=== PATIENT | male | born 1950 | race Caucasian/White ===

== ENCOUNTER → 2018-05-18 | Outpatient (CLI) | payer OTHER | LOC: M CARPUL 07:43 | DX: G47.31 Primary central sleep apnea (principal) | CPT/HCPCS: 93306 ==

== ENCOUNTER → 2020-02-08 | Outpatient (REF) | payer OTHER ==
[~2020-02-08] MED LIST: LASI40TA OR; LOPR50TA OR; TRAM50TA2 OR
[2020-03-05 14:05] LABS: APPEARANCE, URINE HAZY (CLEAR); BACTERIA, URINE AUTO 2+ (NEGATIVE); BILIRUBIN, URINE AUTO NEGATIVE (NEGATIVE); BLOOD, URINE BLOOD 3+ (NEGATIVE); COLOR, URINE YELLOW (YELLOW); GLUCOSE, URINE (UA) AUTO NEGATIVE (NEGATIVE); KETONE, URINE AUTO NEGATIVE (NEGATIVE); LEUKOCYTE ESTERASE, URINE AUTO 2+ (NEGATIVE); MUCUS, URINE SMALL (NEGATIVE); NITRITE, URINE AUTO NEGATIVE (NEGATIVE); PROTEIN, URINE AUTO NEGATIVE (NEGATIVE); RBC, URINE AUTO 2 /HPF (0-3); SPECIFIC GRAVITY URINE AUTO 1.006 (1.002-1.035); SQUAMOUS EPITHELIAL CELL UR AU 0 /HPF (0-6); UROBILINOGEN, URINE AUTO 0.2 mg/dL (0.0-2.0); WBC, URINE AUTO 23 /HPF (0-3)
== END ==
LOC: M LAB REF 07:26
PROVIDERS: ATTEND Physician Assistant Medical
DX: N39.0 Urinary tract infection, site not specified (principal)

== ENCOUNTER → 2022-01-31 | Outpatient (CLI) | payer MEDICARE, OTHER ==
[~2022-01-31] MED LIST changes: +AMMO12LO TOP; +CREO24CA PO; +CRES40TA PO; +DEXA5LQ; +ELIQ5TAB PO; +FERR325T3 PO; +GABA-1171 PO; +NOXI1TAB PO; +OXYC-403 PO; +PANT40TA29 PO; +POTA-151 PO; +PROC25SU24 PR; +PYRI1TAB5 PO; +SENN1TAB41 PO
== END ==
LOC: M RAD 08:59
PROVIDERS: ATTEND Specialist
DX: C25.9 Malignant neoplasm of pancreas, unspecified (principal)
CPT/HCPCS: 78306; A9503

== ENCOUNTER → 2022-02-03 | Outpatient (CLI) | payer OTHER ==
[~2022-02-03] MED LIST changes: +CYAN2500 SL; +GABA-283 PO
== END ==
LOC: M RAD 12:54
PROVIDERS: ATTEND Internal Medicine
DX: M25.561 Pain in right knee (principal); M25.562 Pain in left knee; M25.571 Pain in right ankle and joints of right foot; M25.572 Pain in left ankle and joints of left foot

== ENCOUNTER → 2022-02-08 | Outpatient (CLI) | payer OTHER ==
[~2022-02-08] MED LIST changes: +PROHANCE 279.3MG/ML 15ML VIAL As Ordered ONE; +PROHANCE 279.3MG/ML 5ML VIAL As Ordered ONE
== END ==
LOC: M RAD 08:36
PROVIDERS: ATTEND Specialist
DX: C78.7 Secondary malignant neoplasm of liver and intrahepatic bile duct (principal); C25.9 Malignant neoplasm of pancreas, unspecified
CPT/HCPCS: 74183; A9576

== ENCOUNTER 2022-02-21 09:32 | Emergency (ER) | payer OTHER ==
[~2022-02-21] VITALS: Ht 175.3 cm; Wt 131.5 kg
[~2022-02-21 09:32] MED LIST changes: +META28.32 PO; +MILK400S12 PO; +MIRA3350 PO; -PROHANCE 279.3MG/ML 15ML VIAL As Ordered ONE; -PROHANCE 279.3MG/ML 5ML VIAL As Ordered ONE
[2022-02-21] MEDS ORDERED: OXYC10TA12 PO (10:11)
[2022-02-21] MEDS ORDERED: NS 500 ML IV ONE (10:40)
[2022-02-21] MEDS ORDERED: ISOVUE-370 76% 100ML VIAL As Ordered ONE (11:35)
[2022-02-21 11:36] LABS: HEMATOCRIT 25.9 % (42.0-52.0); HEMOGLOBIN 7.4 g/dl (13.5-17.5); MEAN CORPUSCULAR HEMOGLOBIN 30.1 pg (27.0-33.0); MEAN CORPUSCULAR HGB CONC 28.6 g/dl (32.0-36.5); MEAN CORPUSCULAR VOLUME 105.3 fl (80.0-96.0); RED BLOOD COUNT 2.46 10^6/uL (4.30-6.10)
[2022-02-21 12:09] LABS: INR 1.04
[2022-02-21 12:10] LABS: PARTIAL THROMBOPLASTIN TIME 27.8 SECONDS (25.9-37.0)
[2022-02-21 12:13] LABS: ALBUMIN 2.9 GM/DL (3.2-5.2); BILIRUBIN,DIRECT 0.2 MG/DL (0.0-0.2); BILIRUBIN,TOTAL 0.4 MG/DL (0.2-1.0); MAGNESIUM LEVEL 2.2 MG/DL (1.8-2.4); TOTAL PROTEIN 6.2 GM/DL (6.4-8.2)
[2022-02-21 12:20] LABS: CK-MB VALUE MASS < 1.0 NG/ML (<3.6); CPK CREATINE PHOSPHOKINASE 27 U/L (39-308)
[2022-02-21 12:22] LABS: LYMPHOCYTES 4 % (16-44); NEUTROPHILS 96 % (28-66); PLATELET ESTIMATE NORMAL (NORMAL)
[2022-02-21 12:23] LABS: ANISOCYTOSIS 1+; HYPOCHROMASIA 1+
[2022-02-21] MEDS ORDERED: ATIV1TAB10 PO (14:16)
[2022-02-21 14:52] VITALS: BP 132/77
[2022-02-24] MEDS ORDERED: OXYC-404 PO (14:15)
== END 2022-02-21 14:55 | disposition home or self-care (01) ==
LOC: M ED 09:32
DX: D72.829 Elevated white blood cell count, unspecified (principal); R10.9 Unspecified abdominal pain; C25.9 Malignant neoplasm of pancreas, unspecified; I49.1 Atrial premature depolarization; I44.4 Left anterior fascicular block; Z86.79 Personal history of other diseases of the circulatory system; Z88.1 Allergy status to other antibiotic agents; Z88.8 Allergy status to other drugs, medicaments and biological substances; Z92.21 Personal history of antineoplastic chemotherapy; Z79.01 Long term (current) use of anticoagulants; Z79.52 Long term (current) use of systemic steroids; Z79.899 Other long term (current) drug therapy
CPT/HCPCS: 71045; 71260; 74177; 80047; 80076; 81001; 82150; 82550; 82553; 83605; 83690; 83735; 84484; 85025; 85610; 85730; 87040; 93005; 93041; 96360; 96361; 99284; Q9967

== ENCOUNTER → 2022-03-01 | Outpatient (CLI) | payer OTHER ==
[~2022-03-01] MED LIST changes: +ACET1TAB55 PO; +ATIV1TAB10 PO; +CEFD300CAP PO; +COLC0.6T47 PO; +CREO12CA PO; +CYAN100050 PO; -DEXA5LQ; +DEXA5LQ PO; +DIGO0.253 PO; +FAMO20TA PO; +LIDOCAINE 1% MDV 20ML VIAL As Ordered ONE; +METO1TAB7 PO; +OXYC-404 PO; +OXYC10TA12 PO; +SYNT100T PO; +TORS10TA3 PO; +VITA100093 PO; +med rec comment
[2022-03-01 11:15] VITALS: BP 119/59
== END ==
LOC: M IRPRO 08:11
PROVIDERS: ATTEND Specialist
DX: C22.9 Malignant neoplasm of liver, not specified as primary or secondary (principal)

== ENCOUNTER 2022-03-03 12:26 | Inpatient (IN) | payer OTHER ==
[~2022-03-03] VITALS: Ht 175.3 cm; Wt 131.4 kg
[~2022-03-03 12:26] MED LIST changes: -ACET1TAB55 PO; -CEFD300CAP PO; -COLC0.6T47 PO; -CREO12CA PO; -CYAN100050 PO; -DIGO0.253 PO; -FAMO20TA PO; -LIDOCAINE 1% MDV 20ML VIAL As Ordered ONE; -METO1TAB7 PO; -SYNT100T PO; -TORS10TA3 PO; -VITA100093 PO; -med rec comment
[2022-03-03] MEDS ORDERED: ACET1TAB55 PO (13:23)
[2022-03-03] MEDS ORDERED: NS 500 ML IV ONE (13:25)
[2022-03-03] MEDS ORDERED: ISOVUE-370 76% 100ML VIAL As Ordered ONE (13:50)
[2022-03-03] MEDS: SODIUM CHLORIDE 0.9% INJ 10 ML SYR IV PRN (14:24)
[2022-03-03 14:44] LABS: ALBUMIN 2.6 GM/DL (3.2-5.2); BILIRUBIN,DIRECT 0.4 MG/DL (0.0-0.2); BILIRUBIN,TOTAL 0.8 MG/DL (0.2-1.0); TOTAL PROTEIN 6.3 GM/DL (6.4-8.2)
[2022-03-03 15:04] LABS: CK-MB VALUE MASS < 1.0 NG/ML (<3.6); CPK CREATINE PHOSPHOKINASE 45 U/L (39-308); MB/CK RELATIVE INDEX 2.22 (< OR =4)
[2022-03-03] MEDS ORDERED: PIPERACILLIN/TAZOBACTAM SOD 4.5 GM in D5W MINI-BAG PLUS 50 ML IV ONE (15:15)
[2022-03-03 15:21] LABS: AMORPHOUS SEDIMENT, URINE SMALL AMOUNT (NEGATIVE); BACTERIA, URINE NONE SEEN; HYALINE CAST, URINE NONE SEEN /lpf (0-1); MUCUS, URINE LARGE AMOUNT (NEGATIVE); RBC, URINE 0-1 /hpf (0-3); SQUAMOUS EPITHELIAL CELL URINE SMALL AMOUNT /hpf (SMALL AMT)
[2022-03-03] MEDS ORDERED: VITA100093 PO (17:38)
[2022-03-03] MEDS ORDERED: GABA-1171 PO (17:38)
[2022-03-03] MEDS ORDERED: DIGO0.253 PO (17:38)
[2022-03-03] MEDS ORDERED: METO1TAB7 PO (17:38)
[2022-03-03] MEDS ORDERED: CYAN100050 PO (17:38)
[2022-03-03] MEDS ORDERED: CREO12CA PO (17:38)
[2022-03-03] MEDS ORDERED: SYNT100T PO (17:38)
[2022-03-03] MEDS ORDERED: HOME MED LIST COMPLETE! XX SCH (17:40)
[2022-03-03 18:00] VITALS: BP 140/78
[2022-03-03] MEDS: CREON-12 CAPSULE PO SCH (18:00)
[2022-03-03] MEDS: CREON-24 CAPSULE PO SCH (18:00)
[2022-03-03] MEDS: oxyCODONE 5MG TAB PO PRN (18:44)
[2022-03-03] MEDS ORDERED: VANCOMYCIN HCL 1,000 MG, VIAL MATE ADAPTER 1 EACH in NS 250 ML IV ONE (19:00)
[2022-03-03 19:10] VITALS: O2SAT 93
[2022-03-03] MEDS ORDERED: GABAPENTIN 100 MG CAP PO SCH (21:00)
[2022-03-03] MEDS: SENOKOT S TAB PO SCH (21:22)
[2022-03-03] MEDS: GABAPENTIN 300 MG CAP PO SCH (21:22)
[2022-03-03] MEDS: APIXABAN 5 MG TAB (ELIQUIS) PO SCH (21:22)
[2022-03-03] MEDS: oxyCODONE 20 MG CR TAB PO SCH (21:24)
[2022-03-03] MEDS: VANCOMYCIN HCL 1,000 MG, VIAL MATE ADAPTER 1 EACH in NS 250 ML IV SCH (21:46)
[2022-03-03 22:00] VITALS: BP 110/64
[2022-03-03] MEDS: NYSTATIN 100,000 UNITS/GM TOPICAL PWD 15 GM TOP SCH (22:52)
[2022-03-03] MEDS: PIPERACILLIN/TAZOBACTAM SOD 4.5 GM in D5W MINI-BAG PLUS 50 ML IV SCH (23:11)
[2022-03-04] VITALS (13 sets, daily range): BP systolic 96–118; BP diastolic 56–68; O2SAT 91
[2022-03-04] MEDS: SODIUM CHLORIDE 0.9% INJ 10 ML SYR IV PRN (00:23)
[2022-03-04] MEDS: oxyCODONE 5MG TAB PO PRN ×2 (01:26→17:06)
[2022-03-04] MEDS: PIPERACILLIN/TAZOBACTAM SOD 4.5 GM in D5W MINI-BAG PLUS 50 ML IV SCH ×4 (05:52→22:24)
[2022-03-04] MEDS: LEVOTHYROXINE 100MCG TABLET (0.1MG) PO SCH (05:52)
[2022-03-04] MEDS ORDERED: FUROSEMIDE 40MG/4ML VIAL (J1940) IV ONE ×2 (08:10→13:00)
[2022-03-04] MEDS: APIXABAN 5 MG TAB (ELIQUIS) PO SCH ×2 (08:27→20:48)
[2022-03-04] MEDS: ROSUVASTATIN 10 MG TAB (CRESTOR) PO SCH (08:27)
[2022-03-04] MEDS: METAMUCIL (PSYLLIUM) PACKET PO SCH (08:27)
[2022-03-04] MEDS: MIRALAX *UNIT DOSE* 17GM PACKET PO SCH (08:27)
[2022-03-04] MEDS: CREON-24 CAPSULE PO SCH ×3 (08:27→17:37)
[2022-03-04] MEDS: CREON-12 CAPSULE PO SCH ×3 (08:27→17:36)
[2022-03-04] MEDS: GABAPENTIN 300 MG CAP PO SCH ×3 (08:27→20:48)
[2022-03-04] MEDS: VANCOMYCIN HCL 1,000 MG, VIAL MATE ADAPTER 1 EACH in NS 250 ML IV SCH ×2 (08:27→20:58)
[2022-03-04] MEDS: NYSTATIN 100,000 UNITS/GM TOPICAL PWD 15 GM TOP SCH ×2 (08:30→20:49)
[2022-03-04] MEDS: DIGOXIN 0.25 MG TAB PO SCH (08:31)
[2022-03-04] MEDS: METOPROLOL SUCC (TopROL XL) 50MG **XL** TAB PO SCH (08:31)
[2022-03-04] MEDS: oxyCODONE 20 MG CR TAB PO SCH ×2 (08:35→20:49)
[2022-03-04 09:25] LABS: BASO # 0.1 10^3/uL (0.0-0.2); BASO % 0.2 % (0.0-1.0); EOS % 0.1 % (0.0-3.0); HEMATOCRIT 25.1 % (42.0-52.0); HEMOGLOBIN 7.4 g/dl (13.5-17.5); LYMPH % 4.9 % (24.0-44.0); MEAN CORPUSCULAR HEMOGLOBIN 29.1 pg (27.0-33.0); MEAN CORPUSCULAR HGB CONC 29.5 g/dl (32.0-36.5); MEAN CORPUSCULAR VOLUME 98.8 fl (80.0-96.0); MONO % 20.3 % (2.0-8.0); NEUTROPHILS # 14.7 10^3/uL (1.5-8.5); PLATELET COUNT, AUTOMATED 334 10^3/uL (150-450); RED BLOOD COUNT 2.54 10^6/uL (4.30-6.10); WHITE BLOOD COUNT 20.2 10^3/uL (4.0-10.0)
[2022-03-04 10:01] LABS: ALBUMIN 2.8 GM/DL (3.2-5.2); ALT/SGPT 31 U/L (12-78); BILIRUBIN,TOTAL 0.8 MG/DL (0.2-1.0); BLOOD UREA NITROGEN 14 MG/DL (7-18); CALCIUM LEVEL 8.8 MG/DL (8.8-10.2); CARBON DIOXIDE LEVEL 24 MEQ/L (21-32); CHLORIDE LEVEL 103 MEQ/L (98-107); CREATININE FOR GFR 1.16 MG/DL (0.70-1.30); GLOMERULAR FILTRATION RATE > 60.0 (>42); GLUCOSE, FASTING 118 MG/DL (70-100); SODIUM LEVEL 134 MEQ/L (136-145); TOTAL PROTEIN 6.4 GM/DL (6.4-8.2)
[2022-03-04 10:35] LABS: MONO # 4.1 10^3/uL (0.0-0.8)
[2022-03-04] MEDS: SENOKOT S TAB PO SCH (20:49)
[2022-03-05 02:00] VITALS: BP 102/61
[2022-03-05] MEDS: PIPERACILLIN/TAZOBACTAM SOD 4.5 GM in D5W MINI-BAG PLUS 50 ML IV SCH ×2 (03:03→10:55)
[2022-03-05] MEDS: SODIUM CHLORIDE 0.9% INJ 10 ML SYR IV PRN ×2 (04:23→12:35)
[2022-03-05 05:04] VITALS: BP 107/71
[2022-03-05] MEDS: LEVOTHYROXINE 100MCG TABLET (0.1MG) PO SCH (05:10)
[2022-03-05 06:56] LABS: BASO % 0.2 % (0.0-1.0); EOS # 0.1 10^3/uL (0.0-0.5); EOS % 0.4 % (0.0-3.0); HEMATOCRIT 28.8 % (42.0-52.0); HEMOGLOBIN 8.8 g/dl (13.5-17.5); LYMPH # 0.8 10^3/uL (1.5-5.0); LYMPH % 4.3 % (24.0-44.0); MEAN CORPUSCULAR HEMOGLOBIN 29.6 pg (27.0-33.0); MEAN CORPUSCULAR HGB CONC 30.6 g/dl (32.0-36.5); MONO % 19.4 % (2.0-8.0); NEUTROPHILS # 13.4 10^3/uL (1.5-8.5); NEUTROPHILS % 74.6 % (36.0-66.0); PLATELET COUNT, AUTOMATED 287 10^3/uL (150-450); RED BLOOD COUNT 2.97 10^6/uL (4.30-6.10)
[2022-03-05 07:18] LABS: MONO # 3.5 10^3/uL (0.0-0.8)
[2022-03-05 07:30] LABS: BLOOD UREA NITROGEN 15 MG/DL (7-18); CALCIUM LEVEL 8.4 MG/DL (8.8-10.2); CARBON DIOXIDE LEVEL 28 MEQ/L (21-32); CHLORIDE LEVEL 100 MEQ/L (98-107); CREATININE FOR GFR 1.25 MG/DL (0.70-1.30); GLOMERULAR FILTRATION RATE > 60.0 (>42); GLUCOSE, FASTING 123 MG/DL (70-100); POTASSIUM SERUM 3.7 MEQ/L (3.5-5.1); SODIUM LEVEL 136 MEQ/L (136-145)
[2022-03-05] MEDS ORDERED: FUROSEMIDE 40MG/4ML VIAL (J1940) IV ONE (07:40)
[2022-03-05] MEDS: CREON-24 CAPSULE PO SCH (08:39)
[2022-03-05] MEDS: MIRALAX *UNIT DOSE* 17GM PACKET PO SCH (08:39)
[2022-03-05] MEDS: APIXABAN 5 MG TAB (ELIQUIS) PO SCH (08:39)
[2022-03-05] MEDS: CREON-12 CAPSULE PO SCH (08:39)
[2022-03-05] MEDS: DIGOXIN 0.25 MG TAB PO SCH (08:39)
[2022-03-05] MEDS: METAMUCIL (PSYLLIUM) PACKET PO SCH (08:39)
[2022-03-05] MEDS: ROSUVASTATIN 10 MG TAB (CRESTOR) PO SCH (08:40)
[2022-03-05] MEDS: VANCOMYCIN HCL 1,000 MG, VIAL MATE ADAPTER 1 EACH in NS 250 ML IV SCH ×2 (08:40→09:22)
[2022-03-05] MEDS: GABAPENTIN 300 MG CAP PO SCH (08:40)
[2022-03-05] MEDS: NYSTATIN 100,000 UNITS/GM TOPICAL PWD 15 GM TOP SCH (08:41)
[2022-03-05 08:59] VITALS: BP 103/65
[2022-03-05] MEDS: METOPROLOL SUCC (TopROL XL) 50MG **XL** TAB PO SCH (08:59)
[2022-03-05] MEDS: oxyCODONE 20 MG CR TAB PO SCH (09:07)
[2022-03-05] MEDS ORDERED: CEFD300CAP PO (10:17)
[2022-03-05] MEDS ORDERED: TORS10TA3 PO (10:17)
[2022-03-05 10:30] VITALS: O2SAT 92
== END 2022-03-05 13:29 | disposition home or self-care (01) | DRG 815 ==
LOC: M ED 12:26 → M ED INP 15:52 → ENRESERV 16:17 → M MSPAV 17:55
PROVIDERS: ADMIT Internal Medicine Nephrology; ATTEND Internal Medicine Nephrology
PROC: 30233N1 Transfusion of Nonautologous Red Blood Cells into Peripheral Vein, Percutaneous Approach (ICD-10-PCS; principal; 2022-03-04)
DX: D72.829 Elevated white blood cell count, unspecified (principal); C78.7 Secondary malignant neoplasm of liver and intrahepatic bile duct; C25.9 Malignant neoplasm of pancreas, unspecified; Z68.41 Body mass index [BMI] 40.0-44.9, adult; E78.5 Hyperlipidemia, unspecified; I48.91 Unspecified atrial fibrillation; J45.909 Unspecified asthma, uncomplicated; E53.8 Deficiency of other specified B group vitamins; I10 Essential (primary) hypertension; K21.9 Gastro-esophageal reflux disease without esophagitis; E03.9 Hypothyroidism, unspecified; E66.01 Morbid (severe) obesity due to excess calories; G47.33 Obstructive sleep apnea (adult) (pediatric); D50.9 Iron deficiency anemia, unspecified; G62.0 Drug-induced polyneuropathy; Z92.21 Personal history of antineoplastic chemotherapy; Z79.899 Other long term (current) drug therapy; Z88.8 Allergy status to other drugs, medicaments and biological substances; M19.90 Unspecified osteoarthritis, unspecified site; Z79.01 Long term (current) use of anticoagulants; Z66 Do not resuscitate

== ENCOUNTER 2022-03-12 10:58 | Inpatient (IN) | payer OTHER ==
[2022-03-12] VITALS (30 sets, daily range): BP systolic 96–135; BP diastolic 49–62
[~2022-03-12] VITALS: Ht 175.3 cm; Wt 125.0 kg
[2022-03-12] MEDS: FAMOTIDINE 20 MG TAB PO SCH (09:00)
[~2022-03-12 10:58] MED LIST changes: +ACET1TAB55 PO; +CEFD300CAP PO; +CREO12CA PO; +CYAN100050 PO; +DIGO0.253 PO; +METO1TAB7 PO; +SYNT100T PO; +TORS10TA3 PO; +VITA100093 PO
[2022-03-12] MEDS: NS 1,000 ML IV SCH ×2 (11:15→21:15)
[2022-03-12 11:29] LABS: VENOUS HCO3 31.6 MEQ/L (23.0-27.0); VENOUS O2 SATURATION 89.2 % (60.0-80.0); VENOUS PARTIAL PRESSURE CO2 45.3 mmHg (38.0-50.0); VENOUS PARTIAL PRESSURE O2 57.5 mmHg (30.0-50.0); VENOUS PH 7.461 UNITS (7.330-7.430); VENOUS STANDARD HCO3 30.7 MEQ/L
[2022-03-12 11:35] LABS: BASO % 0.1 % (0.0-1.0); HEMATOCRIT 28.2 % (42.0-52.0); HEMOGLOBIN 8.8 g/dl (13.5-17.5); LYMPH # 0.4 10^3/uL (1.5-5.0); LYMPH % 3.1 % (24.0-44.0); MEAN CORPUSCULAR HEMOGLOBIN 29.4 pg (27.0-33.0); MEAN CORPUSCULAR HGB CONC 31.2 g/dl (32.0-36.5); MEAN CORPUSCULAR VOLUME 94.3 fl (80.0-96.0); MONO # 0.2 10^3/uL (0.0-0.8); MONO % 1.5 % (2.0-8.0); NEUTROPHILS % 94.2 % (36.0-66.0); PLATELET COUNT, AUTOMATED 397 10^3/uL (150-450); RED BLOOD COUNT 2.99 10^6/uL (4.30-6.10); WHITE BLOOD COUNT 11.6 10^3/uL (4.0-10.0)
[2022-03-12 12:05] LABS: OSMOLALITY SERUM 293 MOSM/KG (280-301)
[2022-03-12 12:27] LABS: ALBUMIN 2.5 GM/DL (3.2-5.2); ALT/SGPT 62 U/L (12-78); BILIRUBIN,DIRECT 0.5 MG/DL (0.0-0.2); BILIRUBIN,TOTAL 0.7 MG/DL (0.2-1.0); BLOOD UREA NITROGEN 23 MG/DL (7-18); CALCIUM LEVEL 8.5 MG/DL (8.8-10.2); CARBON DIOXIDE LEVEL 30 MEQ/L (21-32); CHLORIDE LEVEL 100 MEQ/L (98-107); CREATININE FOR GFR 0.96 MG/DL (0.70-1.30); GLOMERULAR FILTRATION RATE > 60.0 (>42); GLUCOSE, FASTING 147 MG/DL (70-100); POTASSIUM SERUM 3.9 MEQ/L (3.5-5.1); SODIUM LEVEL 137 MEQ/L (136-145); TOTAL PROTEIN 6.3 GM/DL (6.4-8.2)
[2022-03-12 12:55] LABS: CK-MB VALUE MASS < 1.0 NG/ML (<3.6); CPK CREATINE PHOSPHOKINASE 52 U/L (39-308); MB/CK RELATIVE INDEX 1.92 (< OR =4)
[2022-03-12 13:49] LABS: CK-MB VALUE MASS < 1.0 NG/ML (<3.6); CPK CREATINE PHOSPHOKINASE 26 U/L (39-308); MB/CK RELATIVE INDEX 3.85 (< OR =4)
[2022-03-12] MEDS ORDERED: ISOVUE-370 76% 100ML VIAL As Ordered ONE (13:53)
[2022-03-12 16:25] LABS: CK-MB VALUE MASS < 1.0 NG/ML (<3.6); CPK CREATINE PHOSPHOKINASE 29 U/L (39-308); MB/CK RELATIVE INDEX 3.44 (< OR =4)
[2022-03-12 17:38] LABS: MUCUS, URINE SMALL AMOUNT (NEGATIVE); RBC, URINE 0-1 /hpf (0-3); SQUAMOUS EPITHELIAL CELL URINE SMALL AMOUNT /hpf (SMALL AMT)
[2022-03-12 17:39] LABS: BACTERIA, URINE NONE SEEN; YEAST, URINE SMALL AMOUNT
[2022-03-12] MEDS ORDERED: LEVALBUTEROL 1.25 MG/0.5 ML CONCENTRATE NEB NEB PRN (17:45)
[2022-03-12 18:08] LABS: RSV AMPLIFICATION NEGATIVE (NEGATIVE)
[2022-03-12] MEDS ORDERED: flumazeniL 0.5 MG/5 ML VIAL As Ordered ONE (18:09)
[2022-03-12] MEDS ORDERED: MIDAZOLAM INJ 2MG/2ML VIAL (J2250 PER 1MG) As Ordered ONE (18:10)
[2022-03-12] MEDS ORDERED: LIDOCAINE 1% MDV 20ML VIAL As Ordered ONE (18:11)
[2022-03-12] MEDS ORDERED: MIDAZOLAM INJ 2MG/2ML VIAL (J2250 PER 1MG) IV ONE (18:45)
[2022-03-12] MEDS ORDERED: KCL 20MEQ IN D5/NS 1000ML 1,000 ML IV SCH (19:10)
[2022-03-12] MEDS ORDERED: PERCOCET 5MG/325MG TAB PO PRN (19:10)
[2022-03-12] MEDS ORDERED: ONDANSETRON 4MG 2ML VIAL IV PRN (19:10)
[2022-03-12] MEDS ORDERED: BISACODYL 10 MG SUPP PR PRN (19:10)
[2022-03-12] MEDS ORDERED: ACETAMINOPHEN TAB 650MG DOSE (2X325MG) PO PRN (19:10)
[2022-03-12] MEDS ORDERED: LIDOCAINE 1% MDV 20ML VIAL SC ONE (19:20)
[2022-03-12 20:18] LABS: SOURCE, BODY FLUID pH PERICARDIAL
[2022-03-12 20:21] LABS: SPEC. GRAVITY BODY FLUIDS 1.026 (NOT ESTABLISHED)
[2022-03-12 20:22] LABS: APPEARANCE, BODY FLUID TURBID (CLEAR); SOURCE, BODY FLUID PERICARDIAL
[2022-03-12 20:29] LABS: BASO % 0.1 % (0.0-1.0); HEMATOCRIT 28.6 % (42.0-52.0); HEMOGLOBIN 8.5 g/dl (13.5-17.5); LYMPH # 0.4 10^3/uL (1.5-5.0); LYMPH % 3.4 % (24.0-44.0); MEAN CORPUSCULAR HEMOGLOBIN 28.4 pg (27.0-33.0); MEAN CORPUSCULAR HGB CONC 29.7 g/dl (32.0-36.5); MEAN CORPUSCULAR VOLUME 95.7 fl (80.0-96.0); MONO # 0.1 10^3/uL (0.0-0.8); MONO % 1.3 % (2.0-8.0); NEUTROPHILS # 10.1 10^3/uL (1.5-8.5); NEUTROPHILS % 94.7 % (36.0-66.0); PLATELET COUNT, AUTOMATED 377 10^3/uL (150-450); RED BLOOD COUNT 2.99 10^6/uL (4.30-6.10); WHITE BLOOD COUNT 10.7 10^3/uL (4.0-10.0)
[2022-03-12 20:37] LABS: SOURCE, BODY FLUID ALBUMIN PERICARDIAL
[2022-03-12 20:47] LABS: INR 1.28; PARTIAL THROMBOPLASTIN TIME 30.5 SECONDS (25.9-37.0); PROTHROMBIN TIME 16.4 SECONDS (12.7-14.5)
[2022-03-12] MEDS ORDERED: TORS10TA3 PO (20:51)
[2022-03-12] MEDS ORDERED: med rec comment (20:56)
[2022-03-12 20:57] LABS: LDH, BODY FLUID 1264 U/L (NOT ESTABLISHED); SOURCE, BODY FLUID GLUCOSE PERICARDIAL; SOURCE, BODY FLUID LDH PERICARDIAL; SOURCE, BODY FLUID TOT PROTEIN PERICARDIAL; TOTAL PROTEIN, BODY FLUID 4.8 G/DL (NOT ESTABLISHED)
[2022-03-12] MEDS ORDERED: HOME MED LIST COMPLETE! XX SCH (21:00)
[2022-03-12] MEDS: KETOROLAC 30 MG/ML 1ML VIAL IV SCH (22:19)
[2022-03-12] MEDS: ceFAZolin SOD 1 GM in D5W MINI-BAG PLUS 50 ML IV SCH (22:19)
[2022-03-12] MEDS: DOCUSATE SODIUM 100MG CAPSULE PO SCH (22:20)
[2022-03-13] VITALS (16 sets, daily range): BP systolic 95–124; BP diastolic 49–87
[2022-03-13] MEDS: KETOROLAC 30 MG/ML 1ML VIAL IV SCH ×4 (01:47→20:12)
[2022-03-13] MEDS: PERCOCET 5MG/325MG TAB PO PRN ×2 (01:47→08:12)
[2022-03-13] MEDS: ceFAZolin SOD 1 GM in D5W MINI-BAG PLUS 50 ML IV SCH ×3 (04:06→20:13)
[2022-03-13 04:33] LABS: BASO % 0.1 % (0.0-1.0); HEMATOCRIT 25.4 % (42.0-52.0); HEMOGLOBIN 7.8 g/dl (13.5-17.5); LYMPH # 0.5 10^3/uL (1.5-5.0); LYMPH % 4.7 % (24.0-44.0); MEAN CORPUSCULAR HEMOGLOBIN 29.2 pg (27.0-33.0); MEAN CORPUSCULAR HGB CONC 30.7 g/dl (32.0-36.5); MEAN CORPUSCULAR VOLUME 95.1 fl (80.0-96.0); MONO # 0.1 10^3/uL (0.0-0.8); MONO % 0.7 % (2.0-8.0); NEUTROPHILS # 9.4 10^3/uL (1.5-8.5); NEUTROPHILS % 93.9 % (36.0-66.0); PLATELET COUNT, AUTOMATED 327 10^3/uL (150-450); RED BLOOD COUNT 2.67 10^6/uL (4.30-6.10)
[2022-03-13 05:07] LABS: ALBUMIN 2.1 GM/DL (3.2-5.2); ALT/SGPT 42 U/L (12-78); BILIRUBIN,TOTAL 0.6 MG/DL (0.2-1.0); BLOOD UREA NITROGEN 23 MG/DL (7-18); CALCIUM LEVEL 8.3 MG/DL (8.8-10.2); CARBON DIOXIDE LEVEL 31 MEQ/L (21-32); CHLORIDE LEVEL 102 MEQ/L (98-107); CREATININE FOR GFR 0.87 MG/DL (0.70-1.30); GLOMERULAR FILTRATION RATE > 60.0 (>42); GLUCOSE, FASTING 119 MG/DL (70-100); POTASSIUM SERUM 3.6 MEQ/L (3.5-5.1); SODIUM LEVEL 138 MEQ/L (136-145); TOTAL PROTEIN 5.1 GM/DL (6.4-8.2)
[2022-03-13 06:00] LABS: ABG BASE EXCESS 9.7 (-2.0-2.0); ABG HCO3 33.6 MEQ/L (22.0-26.0); ABG O2 SATURATION 91.7 % (95.0-99.0); ABG PARTIAL PRESSURE CO2 43.2 mmHg (35.0-45.0); ABG PARTIAL PRESSURE O2 60.2 mmHg (75.0-100.0); ABG STANDARD HCO3 33.3 MEQ/L (22.0-26.0); ABG TOTAL CO2 34.9 MEQ/L (23.0-31.0); ABG pH (ARTERIAL) 7.509 UNITS (7.350-7.450)
[2022-03-13] MEDS: MOM 30ML SUSPENSION UDC PO SCH (08:11)
[2022-03-13] MEDS: HEPARIN SOD (PORCINE) 5000UNITS/ML 1ML VIAL/SYRINGE SC SCH ×2 (08:11→20:13)
[2022-03-13] MEDS: PANTOPRAZOLE 40MG TAB (PROTONIX) PO SCH (08:12)
[2022-03-13] MEDS: FAMOTIDINE 20 MG TAB PO SCH (08:12)
[2022-03-13] MEDS: DOCUSATE SODIUM 100MG CAPSULE PO SCH ×2 (08:12→20:13)
[2022-03-13] MEDS: GABAPENTIN 400MG CAP PO SCH ×3 (12:27→20:13)
[2022-03-13] MEDS: GABAPENTIN 100 MG CAP PO SCH ×3 (12:27→20:13)
[2022-03-13] MEDS: COLCHICINE 0.6 MG TABLET PO SCH (12:27)
[2022-03-14] VITALS (10 sets, daily range): BP systolic 96–123; BP diastolic 53–67
[2022-03-14] MEDS: KETOROLAC 30 MG/ML 1ML VIAL IV SCH ×3 (02:07→14:31)
[2022-03-14] MEDS: ceFAZolin SOD 1 GM in D5W MINI-BAG PLUS 50 ML IV SCH ×2 (04:16→11:28)
[2022-03-14 05:39] LABS: BASO % 0.1 % (0.0-1.0); EOS # 0.1 10^3/uL (0.0-0.5); EOS % 0.6 % (0.0-3.0); HEMOGLOBIN 7.7 g/dl (13.5-17.5); LYMPH # 0.8 10^3/uL (1.5-5.0); LYMPH % 7.9 % (24.0-44.0); MEAN CORPUSCULAR HEMOGLOBIN 28.1 pg (27.0-33.0); MEAN CORPUSCULAR HGB CONC 29.6 g/dl (32.0-36.5); MEAN CORPUSCULAR VOLUME 94.9 fl (80.0-96.0); MONO # 0.1 10^3/uL (0.0-0.8); MONO % 0.7 % (2.0-8.0); NEUTROPHILS # 8.6 10^3/uL (1.5-8.5); NEUTROPHILS % 90.1 % (36.0-66.0); PLATELET COUNT, AUTOMATED 301 10^3/uL (150-450); RED BLOOD COUNT 2.74 10^6/uL (4.30-6.10); WHITE BLOOD COUNT 9.5 10^3/uL (4.0-10.0)
[2022-03-14 06:18] LABS: BLOOD UREA NITROGEN 26 MG/DL (7-18); CALCIUM LEVEL 8.3 MG/DL (8.8-10.2); CARBON DIOXIDE LEVEL 30 MEQ/L (21-32); CHLORIDE LEVEL 102 MEQ/L (98-107); CREATININE FOR GFR 0.92 MG/DL (0.70-1.30); GLOMERULAR FILTRATION RATE > 60.0 (>42); GLUCOSE, FASTING 105 MG/DL (70-100); POTASSIUM SERUM 3.3 MEQ/L (3.5-5.1); SODIUM LEVEL 138 MEQ/L (136-145)
[2022-03-14] MEDS: KCL 10MEQ/100ML SWI (KRUN) 10 MEQ in IV 1 EA IV SCH ×4 (06:53→10:44)
[2022-03-14 07:09] LABS: MAGNESIUM LEVEL 2.6 MG/DL (1.8-2.4)
[2022-03-14] MEDS: PERCOCET 5MG/325MG TAB PO PRN ×2 (08:11→09:18)
[2022-03-14] MEDS: DOCUSATE SODIUM 100MG CAPSULE PO SCH ×2 (09:21→20:28)
[2022-03-14] MEDS: COLCHICINE 0.6 MG TABLET PO SCH (09:21)
[2022-03-14] MEDS: GABAPENTIN 400MG CAP PO SCH ×3 (09:22→20:28)
[2022-03-14] MEDS: GABAPENTIN 100 MG CAP PO SCH ×3 (09:22→20:28)
[2022-03-14] MEDS: PANTOPRAZOLE 40MG TAB (PROTONIX) PO SCH (09:23)
[2022-03-14] MEDS: FAMOTIDINE 20 MG TAB PO SCH (09:23)
[2022-03-14] MEDS: HEPARIN SOD (PORCINE) 5000UNITS/ML 1ML VIAL/SYRINGE SC SCH (09:23)
[2022-03-14] MEDS: MOM 30ML SUSPENSION UDC PO SCH (09:36)
[2022-03-14] MEDS ORDERED: POTASSIUM CHLORIDE 10MEQ SR TABLET PO ONE (15:15)
[2022-03-14] MEDS ORDERED: CREON-24 CAPSULE PO SCH (16:00)
[2022-03-14] MEDS: CREON-12 CAPSULE PO SCH ×2 (17:58→20:28)
[2022-03-14] MEDS: NORCO, ANEXSIA 5/325MG TABLET (HYDROcodone/ACETAMINOPHEN) PO PRN (18:03)
[2022-03-14] MEDS: APIXABAN 5 MG TAB (ELIQUIS) PO SCH (20:27)
[2022-03-14] MEDS: SENOKOT S TAB PO SCH (20:28)
[2022-03-14] MEDS ORDERED: SODIUM CHLORIDE NASAL 0.65% SPRAY BTL (OCEAN) ONE (21:30)
[2022-03-15] VITALS (16 sets, daily range): BP systolic 107–121; BP diastolic 51–60
[2022-03-15] MEDS: NORCO, ANEXSIA 5/325MG TABLET (HYDROcodone/ACETAMINOPHEN) PO PRN ×2 (02:00→07:39)
[2022-03-15] MEDS: LEVOTHYROXINE 100MCG TABLET (0.1MG) PO SCH (05:06)
[2022-03-15 05:21] LABS: BASO % 0.2 % (0.0-1.0); EOS # 0.2 10^3/uL (0.0-0.5); EOS % 3.3 % (0.0-3.0); HEMOGLOBIN 7.4 g/dl (13.5-17.5); LYMPH # 0.8 10^3/uL (1.5-5.0); LYMPH % 15.1 % (24.0-44.0); MEAN CORPUSCULAR HGB CONC 30.8 g/dl (32.0-36.5); MEAN CORPUSCULAR VOLUME 94.1 fl (80.0-96.0); MONO # 0.3 10^3/uL (0.0-0.8); NEUTROPHILS # 4.1 10^3/uL (1.5-8.5); NEUTROPHILS % 75.1 % (36.0-66.0); PLATELET COUNT, AUTOMATED 248 10^3/uL (150-450); RED BLOOD COUNT 2.55 10^6/uL (4.30-6.10); WHITE BLOOD COUNT 5.4 10^3/uL (4.0-10.0)
[2022-03-15 06:08] LABS: BLOOD UREA NITROGEN 22 MG/DL (7-18); CALCIUM LEVEL 7.7 MG/DL (8.8-10.2); CARBON DIOXIDE LEVEL 29 MEQ/L (21-32); CHLORIDE LEVEL 103 MEQ/L (98-107); CREATININE FOR GFR 0.78 MG/DL (0.70-1.30); GLOMERULAR FILTRATION RATE > 60.0 (>42); GLUCOSE, FASTING 106 MG/DL (70-100); POTASSIUM SERUM 4.2 MEQ/L (3.5-5.1); SODIUM LEVEL 135 MEQ/L (136-145)
[2022-03-15] MEDS ORDERED: FUROSEMIDE 40MG/4ML VIAL (J1940) IV ONE (08:00)
[2022-03-15] MEDS: DIGOXIN 0.25 MG TAB PO SCH (08:35)
[2022-03-15] MEDS: CREON-12 CAPSULE PO SCH ×2 (08:35→17:55)
[2022-03-15] MEDS: ROSUVASTATIN 10 MG TAB (CRESTOR) PO SCH (08:35)
[2022-03-15] MEDS: DOCUSATE SODIUM 100MG CAPSULE PO SCH ×2 (08:36→20:17)
[2022-03-15] MEDS: PANTOPRAZOLE 40MG TAB (PROTONIX) PO SCH (08:36)
[2022-03-15] MEDS: FAMOTIDINE 20 MG TAB PO SCH (08:36)
[2022-03-15] MEDS: MIRALAX *UNIT DOSE* 17GM PACKET PO SCH (09:00)
[2022-03-15] MEDS: METAMUCIL (PSYLLIUM) PACKET PO SCH (09:00)
[2022-03-15] MEDS: COLCHICINE 0.6 MG TABLET PO SCH (09:15)
[2022-03-15] MEDS: METOPROLOL SUCC (TopROL XL) 50MG **XL** TAB PO SCH (09:16)
[2022-03-15] MEDS: GABAPENTIN 400MG CAP PO SCH ×3 (09:16→20:16)
[2022-03-15] MEDS: GABAPENTIN 100 MG CAP PO SCH ×3 (09:16→20:17)
[2022-03-15] MEDS: FERROUS SULFATE 325MG TAB PO SCH (09:17)
[2022-03-15] MEDS: APIXABAN 5 MG TAB (ELIQUIS) PO SCH ×2 (09:17→20:17)
[2022-03-15] MEDS: MOM 30ML SUSPENSION UDC PO SCH (09:17)
[2022-03-15] MEDS: TORSEMIDE 10 MG TABLET PO SCH (09:17)
[2022-03-15 14:37] LABS: HEMATOCRIT 29.3 % (42.0-52.0); HEMOGLOBIN 9.2 g/dl (13.5-17.5)
[2022-03-15] MEDS ORDERED: guaiFENesin DM LIQ 10ML UD PO ONE (18:00)
[2022-03-15] MEDS: SENOKOT S TAB PO SCH (20:17)
[2022-03-15] MEDS ORDERED: guaiFENesin DM LIQ 10ML UD PO PRN (22:00)
[2022-03-16] VITALS: BP 112/53
[2022-03-16 04:00] VITALS: BP_SYST 107; BP_SYST 89; BP_DIAS 54; BP_DIAS 59
[2022-03-16 04:30] LABS: BASO % 0.2 % (0.0-1.0); EOS # 0.1 10^3/uL (0.0-0.5); EOS % 1.4 % (0.0-3.0); HEMOGLOBIN 8.6 g/dl (13.5-17.5); LYMPH # 1.1 10^3/uL (1.5-5.0); LYMPH % 11.5 % (24.0-44.0); MEAN CORPUSCULAR HEMOGLOBIN 28.6 pg (27.0-33.0); MEAN CORPUSCULAR HGB CONC 30.7 g/dl (32.0-36.5); MONO # 0.8 10^3/uL (0.0-0.8); MONO % 7.9 % (2.0-8.0); NEUTROPHILS # 7.5 10^3/uL (1.5-8.5); NEUTROPHILS % 78.1 % (36.0-66.0); PLATELET COUNT, AUTOMATED 219 10^3/uL (150-450); RED BLOOD COUNT 3.01 10^6/uL (4.30-6.10); WHITE BLOOD COUNT 9.6 10^3/uL (4.0-10.0)
[2022-03-16] MEDS: LEVOTHYROXINE 100MCG TABLET (0.1MG) PO SCH (05:18)
[2022-03-16 05:26] LABS: BLOOD UREA NITROGEN 23 MG/DL (7-18); CALCIUM LEVEL 8.2 MG/DL (8.8-10.2); CARBON DIOXIDE LEVEL 32 MEQ/L (21-32); CHLORIDE LEVEL 101 MEQ/L (98-107); CREATININE FOR GFR 0.92 MG/DL (0.70-1.30); GLOMERULAR FILTRATION RATE > 60.0 (>42); GLUCOSE, FASTING 101 MG/DL (70-100); SODIUM LEVEL 137 MEQ/L (136-145)
[2022-03-16] MEDS ORDERED: FAMO20TA PO (07:10)
[2022-03-16] MEDS ORDERED: COLC0.6T47 PO (07:10)
[2022-03-16 08:00] VITALS: BP 116/54
[2022-03-16] MEDS: METAMUCIL (PSYLLIUM) PACKET PO SCH (08:56)
[2022-03-16] MEDS: MIRALAX *UNIT DOSE* 17GM PACKET PO SCH (08:57)
[2022-03-16] MEDS: APIXABAN 5 MG TAB (ELIQUIS) PO SCH (09:13)
[2022-03-16] MEDS: DOCUSATE SODIUM 100MG CAPSULE PO SCH (09:13)
[2022-03-16] MEDS: TORSEMIDE 10 MG TABLET PO SCH (09:14)
[2022-03-16] MEDS: COLCHICINE 0.6 MG TABLET PO SCH (09:14)
[2022-03-16] MEDS: FAMOTIDINE 20 MG TAB PO SCH (09:14)
[2022-03-16] MEDS: ROSUVASTATIN 10 MG TAB (CRESTOR) PO SCH (09:14)
[2022-03-16] MEDS: FERROUS SULFATE 325MG TAB PO SCH (09:14)
[2022-03-16 09:15] VITALS: BP 116/54
[2022-03-16] MEDS: CREON-12 CAPSULE PO SCH (09:15)
[2022-03-16] MEDS: METOPROLOL SUCC (TopROL XL) 50MG **XL** TAB PO SCH (09:15)
[2022-03-16] MEDS: DIGOXIN 0.25 MG TAB PO SCH (09:16)
[2022-03-16] MEDS: GABAPENTIN 400MG CAP PO SCH (09:16)
[2022-03-16] MEDS: PANTOPRAZOLE 40MG TAB (PROTONIX) PO SCH (09:16)
[2022-03-16] MEDS: GABAPENTIN 100 MG CAP PO SCH (09:16)
[2022-03-16] MEDS: MOM 30ML SUSPENSION UDC PO SCH (09:17)
[2022-03-16] MEDS: NORCO, ANEXSIA 5/325MG TABLET (HYDROcodone/ACETAMINOPHEN) PO PRN (09:18)
[2022-03-16] MEDS ORDERED: ELIQ5TAB PO (09:52)
[2022-03-16 10:10] LABS: HEMATOCRIT 29.5 % (42.0-52.0); HEMOGLOBIN 9.2 g/dl (13.5-17.5)
== END 2022-03-16 14:02 | disposition home or self-care (01) | DRG 315 ==
LOC: M ED 10:58 → EDBD 10:58 → M ED INP 17:40 → M ICU 17:41
PROVIDERS: ADMIT Internal Medicine; ATTEND Internal Medicine
PROC: B246ZZZ Ultrasonography of Right and Left Heart (ICD-10-PCS; principal; 2022-03-12)
PROC: 0W9D30Z Drainage of Pericardial Cavity with Drainage Device, Percutaneous Approach (ICD-10-PCS; 2022-03-12)
PROC: 30233N1 Transfusion of Nonautologous Red Blood Cells into Peripheral Vein, Percutaneous Approach (ICD-10-PCS; 2022-03-15)
DX: I31.3 Pericardial effusion (noninflammatory) (principal); C78.7 Secondary malignant neoplasm of liver and intrahepatic bile duct; C25.9 Malignant neoplasm of pancreas, unspecified; J90 Pleural effusion, not elsewhere classified; J98.11 Atelectasis; I48.19 Other persistent atrial fibrillation; Z68.41 Body mass index [BMI] 40.0-44.9, adult; Z92.3 Personal history of irradiation; Z92.21 Personal history of antineoplastic chemotherapy; Z88.1 Allergy status to other antibiotic agents; Z88.8 Allergy status to other drugs, medicaments and biological substances; Z20.822 Contact with and (suspected) exposure to COVID-19; R53.1 Weakness; E78.5 Hyperlipidemia, unspecified; E03.9 Hypothyroidism, unspecified; D64.9 Anemia, unspecified; E66.9 Obesity, unspecified; Z79.890 Hormone replacement therapy; Z79.899 Other long term (current) drug therapy; Z79.01 Long term (current) use of anticoagulants; Z79.51 Long term (current) use of inhaled steroids

== ENCOUNTER → 2022-03-16 | Outpatient (RCR) | payer MEDICARE, OTHER ==
[~2022-03-16] MED LIST changes: +COLC0.6T47 PO; +FAMO20TA PO; +med rec comment
== END ==
LOC: M ONCR 03-01 11:32
PROVIDERS: ATTEND General Practice
DX: C78.7 Secondary malignant neoplasm of liver and intrahepatic bile duct (principal)

== ENCOUNTER 2022-03-24 15:17 | Outpatient (RCR) | payer MEDICARE, OTHER ==
[~2022-03-24 15:17] MED LIST changes: +LEVO25TA5 PO
[2022-03-28] MEDS ORDERED: OXYC-404 PO (17:16)
[2022-03-28] MEDS ORDERED: OXYC20TA2 PO (17:16)
[2022-03-28] MEDS ORDERED: ELIQ5TAB PO (17:16)
[2022-03-28] MEDS ORDERED: COLC0.6T47 PO (17:21)
[2022-03-28] MEDS ORDERED: DEXA0.5E2 PO (17:22)
[2022-03-28] MEDS ORDERED: FAMO40TA3 PO (17:22)
[2022-03-28] MEDS ORDERED: MIRA3350 PO (17:22)
[2022-03-31] MEDS ORDERED: GABA-282 PO (11:51)
[2022-03-31] MEDS ORDERED: CETI10TA PO (11:51)
[2022-03-31] MEDS ORDERED: GUAI100S51 PO (11:51)
[2022-03-31] MEDS ORDERED: ONDA4TAB6 PO (11:51)
[2022-03-31] MEDS ORDERED: TRAN1DIS4 TOP (11:51)
[2022-03-31] MEDS ORDERED: ACET1TAB55 PO (11:51)
[2022-03-31] MEDS ORDERED: ATIV1TAB7 PO (11:51)
[2022-03-31] MEDS ORDERED: BENZ-18 PO (11:51)
[2022-03-31] MEDS ORDERED: MORP1SOL SL (11:51)
== END 2022-04-15 ==
LOC: M ONCR 15:17
PROVIDERS: ATTEND General Practice
DX: C78.7 Secondary malignant neoplasm of liver and intrahepatic bile duct (principal)

== ENCOUNTER 2022-03-28 13:02 | Observation (INO) | payer MEDICARE, OTHER ==
[2022-03-28 14:29] LABS: HEMOGLOBIN 7.9 g/dl (13.5-17.5); MEAN CORPUSCULAR HEMOGLOBIN 27.8 pg (27.0-33.0); MEAN CORPUSCULAR HGB CONC 30.4 g/dl (32.0-36.5); MEAN CORPUSCULAR VOLUME 91.5 fl (80.0-96.0); PLATELET COUNT, AUTOMATED 249 10^3/uL (150-450); RED BLOOD COUNT 2.84 10^6/uL (4.30-6.10); WHITE BLOOD COUNT 5.7 10^3/uL (4.0-10.0)
[2022-03-28 14:59] LABS: ANISOCYTOSIS 1+; LYMPHOCYTES 9 % (16-44); NEUTROPHILS 90 % (28-66); PLATELET ESTIMATE NORMAL (NORMAL)
[2022-03-28 15:26] LABS: ALBUMIN 1.7 GM/DL (3.2-5.2); ALT/SGPT 31 U/L (12-78); BILIRUBIN,DIRECT 1.8 MG/DL (0.0-0.2); BILIRUBIN,TOTAL 2.9 MG/DL (0.2-1.0); BLOOD UREA NITROGEN 12 MG/DL (7-18); CALCIUM LEVEL 8.1 MG/DL (8.8-10.2); CARBON DIOXIDE LEVEL 26 MEQ/L (21-32); CHLORIDE LEVEL 103 MEQ/L (98-107); DIGOXIN LEVEL 0.4 NG/ML (0.5-2.0); GLOMERULAR FILTRATION RATE > 60.0 (>42); GLUCOSE, FASTING 108 MG/DL (70-100); LIPASE 17 U/L (73-393); POTASSIUM SERUM 4.2 MEQ/L (3.5-5.1); SODIUM LEVEL 135 MEQ/L (136-145); TOTAL PROTEIN 5.2 GM/DL (6.4-8.2)
[2022-03-28 15:27] LABS: RSV AMPLIFICATION NEGATIVE (NEGATIVE)
[2022-03-28] MEDS ORDERED: NS 500 ML IV ONE (15:35)
[2022-03-28] MEDS ORDERED: ONDANSETRON 4MG ORAL DISINTEGRATING TAB PO PRN (16:30)
[2022-03-28] MEDS ORDERED: ACETAMINOPHEN TAB 650MG DOSE (2X325MG) PO PRN (16:30)
[2022-03-28] MEDS ORDERED: LORazepam 1 MG TAB PO PRN (16:30)
[2022-03-28] MEDS ORDERED: SCOPOLAMINE 1MG TRANSDERMAL PATCH TOP PRN (16:30)
[2022-03-28] MEDS ORDERED: METAMUCIL (PSYLLIUM) PACKET PO PRN (16:55)
[2022-03-28] MEDS ORDERED: OXYC20TA2 PO (17:16)
[2022-03-28] MEDS ORDERED: OXYC-404 PO (17:16)
[2022-03-28] MEDS ORDERED: ELIQ5TAB PO (17:16)
[2022-03-28] MEDS ORDERED: COLC0.6T47 PO (17:21)
[2022-03-28] MEDS ORDERED: FAMO40TA3 PO (17:22)
[2022-03-28] MEDS ORDERED: MIRA3350 PO (17:22)
[2022-03-28] MEDS ORDERED: DEXA0.5E2 PO (17:22)
[2022-03-28] MEDS ORDERED: HOME MED LIST COMPLETE! XX SCH (17:25)
[2022-03-28] MEDS: METOPROLOL SUCC (TopROL XL) 50MG **XL** TAB PO SCH (18:09)
[2022-03-28] MEDS: MORPHINE 10MG/0.5ML ORAL CONCENTRATE SOLUTION U/D SL PRN (19:42)
[2022-03-28] MEDS: CREON-12 CAPSULE PO SCH (19:43)
[2022-03-28] MEDS: GABAPENTIN 300 MG CAP PO SCH (19:47)
[2022-03-28 23:00] VITALS: BP 104/64
[2022-03-29] MEDS: MORPHINE 10MG/0.5ML ORAL CONCENTRATE SOLUTION U/D SL PRN ×4 (00:24→22:59)
[2022-03-29] MEDS: CREON-12 CAPSULE PO SCH ×3 (08:00→17:35)
[2022-03-29] MEDS: GABAPENTIN 300 MG CAP PO SCH ×3 (09:13→21:00)
[2022-03-29] MEDS: METOPROLOL SUCC (TopROL XL) 50MG **XL** TAB PO SCH (09:13)
[2022-03-29] MEDS: DIGOXIN 0.25 MG TAB PO SCH (10:27)
[2022-03-29] MEDS ORDERED: CETIRIZINE (ZyrTEC) 10 MG TAB PO PRN (22:40)
[2022-03-30] MEDS: MORPHINE 10MG/0.5ML ORAL CONCENTRATE SOLUTION U/D SL PRN ×2 (05:43→17:29)
[2022-03-30] MEDS: CREON-12 CAPSULE PO SCH ×3 (08:00→17:30)
[2022-03-30] MEDS: METOPROLOL SUCC (TopROL XL) 50MG **XL** TAB PO SCH (09:26)
[2022-03-30] MEDS: GABAPENTIN 300 MG CAP PO SCH ×3 (09:26→20:37)
[2022-03-30] MEDS: DIGOXIN 0.25 MG TAB PO SCH (09:26)
[2022-03-30] MEDS: BENZONATATE 100MG CAPSULE PO PRN ×2 (11:38→20:55)
[2022-03-31] MEDS ORDERED: guaiFENesin SYRUP 200MG 10ML UDC PO PRN
[2022-03-31] MEDS: CREON-12 CAPSULE PO SCH ×2 (05:55→11:58)
[2022-03-31] MEDS: GABAPENTIN 300 MG CAP PO SCH (08:19)
[2022-03-31 08:20] VITALS: BP 105/61
[2022-03-31] MEDS: DIGOXIN 0.25 MG TAB PO SCH (08:20)
[2022-03-31] MEDS: METOPROLOL SUCC (TopROL XL) 50MG **XL** TAB PO SCH (08:20)
[2022-03-31] MEDS ORDERED: GUAI100S51 PO (11:51)
[2022-03-31] MEDS ORDERED: MORP1SOL SL (11:51)
[2022-03-31] MEDS ORDERED: BENZ-18 PO (11:51)
[2022-03-31] MEDS ORDERED: GABA-282 PO (11:51)
[2022-03-31] MEDS ORDERED: ATIV1TAB7 PO (11:51)
[2022-03-31] MEDS ORDERED: CETI10TA PO (11:51)
[2022-03-31] MEDS ORDERED: ACET1TAB55 PO (11:51)
[2022-03-31] MEDS ORDERED: ONDA4TAB6 PO (11:51)
[2022-03-31] MEDS ORDERED: TRAN1DIS4 TOP (11:51)
== END 2022-03-31 12:40 ==
LOC: M ED 13:02 → M ED INP 13:03 → UNDOADMOB 13:03 → M MS5PR 13:03
PROVIDERS: ADMIT Internal Medicine; ATTEND Internal Medicine
DX: C25.9 Malignant neoplasm of pancreas, unspecified (principal); C78.7 Secondary malignant neoplasm of liver and intrahepatic bile duct; I31.3 Pericardial effusion (noninflammatory); D35.2 Benign neoplasm of pituitary gland; C44.91 Basal cell carcinoma of skin, unspecified; G47.33 Obstructive sleep apnea (adult) (pediatric); I82.891 Chronic embolism and thrombosis of other specified veins; E78.49 Other hyperlipidemia; D64.9 Anemia, unspecified; I48.91 Unspecified atrial fibrillation; E66.9 Obesity, unspecified; M54.16 Radiculopathy, lumbar region; Z79.01 Long term (current) use of anticoagulants; Z79.899 Other long term (current) drug therapy; Z92.21 Personal history of antineoplastic chemotherapy; Z92.3 Personal history of irradiation; E03.9 Hypothyroidism, unspecified; E23.0 Hypopituitarism; Z88.8 Allergy status to other drugs, medicaments and biological substances
CPT/HCPCS: 71045; 80048; 80076; 80162; 83690; 85025; 87631; 93005; 96374; 99285; G0378